=== PATIENT | male | born 1980 | race African-American/Black ===

== ENCOUNTER 2019-09-08 06:39 | Emergency (ER) | payer SELFPAY ==
[~2019-09-08] VITALS: Ht 172.7 cm; Wt 68.2 kg
[2019-09-08] MEDS ORDERED: IBUPROFEN 400 MG TABLET PO ONE (07:45)
[2019-09-08 08:03] VITALS: BP 110/64
== END 2019-09-08 08:17 | disposition home or self-care (01) ==
LOC: EMS 06:39
DX: M79.671 Pain in right foot (principal); M79.672 Pain in left foot; R14.3 Flatulence; M79.10 Myalgia, unspecified site; F20.9 Schizophrenia, unspecified; F17.210 Nicotine dependence, cigarettes, uncomplicated; F12.90 Cannabis use, unspecified, uncomplicated; Z59.0 Homelessness; Z88.1 Allergy status to other antibiotic agents